=== PATIENT | female | born 1955 | race Caucasian/White ===

== ENCOUNTER 2019-01-02 13:09 | Inpatient (IN) | payer OTHER ==
[2019-01-02] MEDS ORDERED: ACETAMINOPHEN TAB 325 MG TAB PO STA (13:29)
[2019-01-02] MEDS ORDERED: MORPHINE SULFATE 4 MG/ML SYRINGE IV STA (13:30)
[2019-01-02] MEDS ORDERED: IPRATROPIUM-ALBUTEROL 3 ML NEB INHALATION STA (13:30)
[2019-01-02] MEDS ORDERED: SODIUM CHLORIDE 0.9% 500 ML 500 ML IV SCH (13:30)
--- NOTE | 2019-01-02 13:35 | ED ---
General Adult HPI - General Chief complaint: Shortness of Breath Stated complaint: gisell, Poss Pneumonia, HxCystic Fibrosis Time Seen by Provider: 01/02/19 13:17 Source: patient, family, RN notes reviewed Mode of arrival: wheelchair Limitations: no limitations - History of Present Illness Initial comments: Patient is a pleasant 63-year-old female presenting to the emergency department with difficulty breathing. Symptoms have progressed over the past couple of years. Symptoms have come much worse today. Patient has felt hot and cold. Patient has been coughing up green mucus. Patient has some discomfort in her chest from coughing. Patient does have a history of cystic fibrosis. Patient has refused lung transplant previously secondary to concern regarding potential complications. - Related Data Home Medications Medication Instructions Recorded Confirmed No Known Home Medications 01/02/19 01/02/19 Allergies Allergy/AdvReac Type Severity Reaction Status Date / Time sulfamethoxazole Allergy Unknown Verified 01/02/19 13:42 [From Bactrim] trimethoprim [From Bactrim] Allergy Unknown Verified 01/02/19 13:42 Review of Systems ROS Statement: Those systems with pertinent positive or pertinent negative responses have been documented in the HPI. ROS Other: All systems not noted in ROS Statement are negative. Constitutional: Reports: as per HPI Eyes: Denies: eye pain ENT: Denies: ear pain Respiratory: Reports: cough, dyspnea Cardiovascular: Reports: chest pain (Which patient attributes to the cough) Endocrine: Reports: fatigue Gastrointestinal: Denies: abdominal pain Genitourinary: Denies: dysuria Musculoskeletal: Denies: back pain Skin: Denies: rash Neurological: Denies: weakness Past Medical History Additional Past Medical History / Comment(s): cystic fibrosis History of Any Multi-Drug Resistant Organisms: None Reported Past Surgical History: No Surgical Hx Reported Past Psychological History: No Psychological Hx Reported Smoking Status: Never smoker Past Alcohol Use History: None Reported Past Drug Use History: None Reported General Exam Limitations: no limitations General appearance: alert Head exam: Present: normocephalic Eye exam: Present: normal appearance, PERRL ENT exam: Present: normal oropharynx Neck exam: Present: normal inspection Respiratory exam: Present: respiratory distress, wheezes, decreased breath s ounds. Absent: chest wall tenderness Cardiovascular Exam: Present: tachycardia GI/Abdominal exam: Present: soft. Absent: tenderness Extremities exam: Present: normal inspection. Absent: pedal edema, calf tenderness Neurological exam: Present: alert Psychiatric exam: Present: normal affect, normal mood Skin exam: Present: normal color Course Vital Signs 01/02/19 01/02/19 01/02/19 13:13 14:11 14:21 Temperature 100.2 F H Pulse Rate 111 H 99 112 H Respiratory 18 Rate Blood Pressure 109/55 O2 Sat by Pulse 91 L Oximetry - Reevaluation(s) Reevaluation #1: 01/02/19 15:04 Patient does meet sepsis criteria diagnosed at 1504. Blood culture and lactic acid have been ordered. IV antibiotics will be ordered. EKG Findings - EKG Comments: EKG Findings:: Sinus tachycardia 103. MA 1:30. QRS 76. QT 314. QTC 411. Normal axis. LVH criteria. No acute ST change. Medical Decision Making - Medical Decision Making Patient reevaluated with only mild improvement. Family updated on results and plan. Case was discussed in detail with Dr. Stanford, who will admit covering for hospital call. - Lab Data Result diagrams: 01/02/19 13:50 Lab Results 01/02/19 01/02/19 01/02/19 Range/Units 13:50 13:50 13:50 WBC 22.5 H (3.8-10.6) k/uL RBC 4.26 (3.80-5.40) m/uL Hgb 11.4 (11.4-16.0) gm/dL Hct 36.3 (34.0-46.0) % MCV 85.1 (80.0-100.0) fL MCH 26.7 (25.0-35.0) pg MCHC 31.4 (31.0-37.0) g/dL RDW 14.3 (11.5-15.5) % Plt Count 205 (150-450) k/uL Neutrophils % 91 % Lymphocytes % 4 % Monocytes % 4 % Eosinophils % 1 % Basophils % 0 % Neutrophils # 20.5 H (1.3-7.7) k/uL Lymphocytes # 0.9 L (1.0-4.8) k/uL Monocytes # 0.8 (0-1.0) k/uL Eosinophils # 0.1 (0-0.7) k/uL Basophils # 0.0 (0-0.2) k/uL Plasma Lactic Acid Murtaza 2.2 H* (0.7-2.0) mmol/L Troponin I <0.012 (0.000-0.034) ng/mL - Radiology Data Radiology results: image reviewed (Chest x-ray has appearance of diffuse pulmonary nodularity and infiltrates.) Critical Care Time Critical Care Time: Yes Total Critical Care Time: 31 Disposition Clinical Impression: Pneumonia Disposition: ADMITTED IP TO THIS HOSP Is patient prescribed a controlled substance at d/c from ED?: No Referrals: None,Stated [Primary Care Provider] - 1-2 days Decision Time: 15:04
[2019-01-02 14:17] LABS: Basophils % (A) 0 %; Eosinophils # (A) 0.1 k/uL (0-0.7); Eosinophils % (A) 1 %; HCT 36.3 % (34.0-46.0); HGB 11.4 gm/dL (11.4-16.0); Lymphocytes # (A) 0.9 k/uL (1.0-4.8); Lymphocytes % (A) 4 %; MCH 26.7 pg (25.0-35.0); MCHC 31.4 g/dL (31.0-37.0); MCV 85.1 fL (80.0-100.0); Mean Platelet Volume 8.5; Monocytes # (A) 0.8 k/uL (0-1.0); Monocytes % (A) 4 %; Neutrophils # (A) 20.5 k/uL (1.3-7.7); Neutrophils % (A) 91 %; Platelet Count 205 k/uL (150-450); RBC 4.26 m/uL (3.80-5.40); RDW 14.3 % (11.5-15.5); WBC 22.5 k/uL (3.8-10.6)
--- NOTE | 2019-01-02 14:38 | XR ---
EXAMINATION TYPE: XR chest 2V DATE OF EXAM: 01/02/2019 COMPARISON: NONE HISTORY: Shortness of breath TECHNIQUE: Frontal and lateral views of the chest are obtained. FINDINGS: Scattered senescent parenchymal changes noted. Hyperinflation compatible with COPD. Diffuse pulmonary nodularity and infiltrates. Correlate for atypical pneumonia. Metastatic disease is not excluded. Heart size is within normal limits. Mediastinal structures are stable and grossly unremarkable. No evidence for hilar prominence. Degenerative changes dorsal spine. IMPRESSION: 1. Diffuse pulmonary nodularity and infiltrates. Correlate for atypical pneumonia. Metastatic disease is not excluded.
[2019-01-02 15:00] LABS: ALT 21 U/L (9-52); AST 37 U/L (14-36); Albumin 3.9 g/dL (3.5-5.0); Alkaline Phosphatase 83 U/L (38-126); Anion Gap 9 mmol/L; Blood Urea Nitrogen 13 mg/dL (7-17); Calcium 8.9 mg/dL (8.4-10.2); Carbon Dioxide 28 mmol/L (22-30); Chloride 98 mmol/L (98-107); Creatine Kinase 26 U/L (30-135); Glucose 92 mg/dL (74-99); Sodium 135 mmol/L (137-145); Total Bilirubin 0.9 mg/dL (0.2-1.3); Total Protein 7.5 g/dL (6.3-8.2)
[2019-01-02] MEDS ORDERED: PNEUMONIA PROTOCOL UTILIZED 1 EACH MISC PO PRN (15:05)
[2019-01-02] MEDS ORDERED: PIPERACILLIN-TAZOBACTAM 3.375 GM in SODIUM CHLORIDE 0.9% 100 ML IVPB STA (15:05)
[2019-01-02] MEDS ORDERED: LEVOFLOXACIN 750MG-D5W PMX 750 MG in DEXTROSE/WATER 1 150ML.BAG IVPB STA (15:05)
[2019-01-02 15:10] LABS: Potassium 3.8 mmol/L (3.5-5.1)
[2019-01-02 15:20] LABS: INR 0.9 (<1.2); Partial Thromboplastin Time 22.2 sec (22.0-30.0); Prothrombin Time 9.5 sec (9.0-12.0)
[2019-01-02] MEDS ORDERED: methylPREDNISolone SOD SUCCI 125 MG/2 ML VIAL IV STA (15:22)
[2019-01-02 15:41] VITALS: BMI 16.1
[2019-01-02] MEDS: SODIUM CHLORIDE 0.9% 1,000 ML IV SCH (15:42)
[2019-01-02] MEDS: IPRATROPIUM-ALBUTEROL 3 ML NEB INHALATION SCH ×2 (15:46→19:52)
[2019-01-02] MEDS ORDERED: ALPRAZolam 0.25 MG TAB PO PRN (16:34)
[2019-01-02] MEDS ORDERED: TEMAZEPAM 15 MG CAP PO PRN (16:37)
[2019-01-02 17:09] LABS: Glucose,Whole Blood 109 mg/dL (75-99)
[2019-01-02] MEDS: INSULIN ASPART (NovoLOG) 100 UNIT/ML VIAL SQ SCH ×2 (17:13→20:48)
[2019-01-02 17:51] LABS: Appearance,Urine Clear (Clear); Bilirubin,Urine Negative (Negative); Blood,Urine Negative (Negative); Color,Urine Colorless; Glucose,Urine (UA) Negative (Negative); Ketones,Urine Negative (Negative); Leukocyte Esterase,Urine Negative (Negative); Nitrite,Urine Negative (Negative); PH, Urine 7.5 (5.0-8.0); Protein,Urine Negative (Negative); Specific Gravity,Urine 1.003 (1.001-1.035); Urobilinogen,Urine <2.0 mg/dL (<2.0)
[2019-01-02] MEDS: methylPREDNISolone SOD SUCCI 125 MG/2 ML VIAL IV SCH ×2 (18:08→23:52)
--- NOTE | 2019-01-02 18:55 | HP ---
HISTORY AND PHYSICAL CHIEF COMPLAINTS: Shortness of breath and cough and sputum. HISTORY OF PRESENT ILLNESS: This 63-year-old woman with a past medical history of asthma, pneumonia, history of cystic fibrosis, bronchitis, history of chronic respiratory failure, not being followed by a primary physician in the outpatient setting, was previously followed by [facility]. The patient apparently refused lung transplantation for cystic fibrosis. Now the patient is complaining of shortness of breath, cough and sputum. Patient was admitted to [facility]. The patient was apparently discharged from there and, because of lack of improvement and worsened symptoms, the patient came to [facility] and was admitted for evaluation and treatment. Chest x-ray showed bilateral pneumonia. Patient is admitted for evaluation. There is no history of any fever, rigor or chills. No history of headache, loss of consciousness, seizures. PAST MEDICAL HISTORY: 1. Cystic fibrosis. 2. History of asthma. 3. Pneumonia. 4. History of chronic hypoxic respiratory failure. MEDICATIONS PRIOR TO ADMISSION: None. ALLERGIES: BACTRIM, SULFA. FAMILY HISTORY: No history of heart disease or strokes in the family. SOCIAL HISTORY: No history of smoking. No history of alcohol intake. REVIEW OF SYSTEMS: ENT: No diminished hearing. No diminished vision. CARDIOVASCULAR SYSTEM: No angina, palpitations. RESPIRATORY SYSTEM: As mentioned earlier. GI: No nausea, vomiting. : No dysuria or retention. NERVOUS SYSTEM: No numbness, weakness. ALLERGY/IMMUNOLOGY: No asthma, hayfever. MUSCULOSKELETAL: As mentioned earlier. HEMATOLOGY/ONCOLOGY: No history of anemia. ENDOCRINE: No history of diabetes, hypothyroidism. CONSTITUTIONAL: As mentioned earlier. DERMATOLOGY: Negative. RHEUMATOLOGY: Negative. PSYCHIATRY: As mentioned earlier. PHYSICAL EXAMINATION: Patient is alert, oriented x3. Pulse is 98, blood pressure 136/80, respiration 20, temperature 99.4, pulse ox 92% on 3 L. HEENT: Conjunctivae normal. Oral mucosa moist. NECK: No jugular venous distention. No carotid bruit. No lymph node enlargement. CARDIOVASCULAR SYSTEM: S1, S2 muffled. No S3. No S4. RESPIRATORY SYSTEM: Breath sounds diminished at the bases. Bilateral scattered rhonchi and crackles. Coarse crackles also present. ABDOMEN: Soft, non-tender. No mass palpable. LEGS: No edema. No swelling. NERVOUS SYSTEM: Higher functions as mentioned earlier. Moves all 4 limbs. No focal motor or sensory deficit. LYMPHATICS: No lymph node palpable in neck, axillae or groin. SKIN: No ulcer, rash, bleeding. JOINTS: No active deforming arthropathy. LABS: WBC 22.5, hemoglobin 11.4, sodium 135, lactic acid 2.2. ASSESSMENT: 1. Bilateral pneumonia, possibly gram-negative, with sepsis. 2. Cystic fibrosis. 3. Bronchial asthma, acute exacerbation, with chronic persistent asthma. 4. Hyponatremia. 5. Increased white count. 6. Increased lactic acid. 7. History of pneumonia. 8. History of chronic hypoxic respiratory failure, on home oxygen. 9. History of severe abdominal pain after eating. 10.Severe protein-calorie malnutrition. BMI of 16.1. RECOMMENDATIONS AND DISCUSSION: In this 63-year-old woman who presented with multiple complex medical issues, we will monitor the patient closely, continue the current management, continue symptomatic treatment. Will initiate broad-spectrum IV antibiotics. Obtain sputum culture. Bronchodilators. I would also recommend IV steroids. Monitor blood sugars closely. Symptomatic treatment will be provided. Dr. Nova will be consulted. Otherwise, DVT prophylaxis. Overall prognosis guarded because of multiple complex medical issues. Further recommendations to follow. I would check for influenza as well. See orders for additional details. I also recommend that the patient follow up with a primary physician closely after discharge. Prognosis guarded. Discussed with the family. MMODL / IJN: [id number] /
[2019-01-02] MEDS: BUDESONIDE 1 MG/2 ML NEBU INHALATION SCH (19:52)
[2019-01-02] MEDS: FORMOTEROL FUMARATE 20 MCG/2 ML NEBU INHALATION SCH (19:52)
[2019-01-02 20:46] LABS: Glucose,Whole Blood 160 mg/dL (75-99)
[2019-01-02] MEDS: HEPARIN SODIUM,PORCINE 5,000 UNIT/ML 1 ML VIAL SQ SCH (20:48)
[2019-01-02] MEDS: TEMAZEPAM 15 MG CAP PO PRN (21:44)
[2019-01-02] MEDS: PIPERACILLIN-TAZOBACTAM 3.375 GM in SODIUM CHLORIDE 0.9% 100 ML IVPB SCH (23:52)
[2019-01-03] MEDS: IPRATROPIUM-ALBUTEROL 3 ML NEB INHALATION PRN (02:22)
[2019-01-03] MEDS: methylPREDNISolone SOD SUCCI 125 MG/2 ML VIAL IV SCH ×4 (05:14→23:03)
[2019-01-03 06:59] LABS: Glucose,Whole Blood 145 mg/dL (75-99)
[2019-01-03] MEDS: PIPERACILLIN-TAZOBACTAM 3.375 GM in SODIUM CHLORIDE 0.9% 100 ML IVPB SCH ×3 (07:05→23:03)
[2019-01-03] MEDS: INSULIN ASPART (NovoLOG) 100 UNIT/ML VIAL SQ SCH ×4 (07:07→20:46)
[2019-01-03] MEDS: PANTOPRAZOLE 40 MG TABLET PO SCH (07:07)
[2019-01-03] MEDS: HEPARIN SODIUM,PORCINE 5,000 UNIT/ML 1 ML VIAL SQ SCH ×2 (07:08→19:36)
--- NOTE | 2019-01-03 08:28 | XR ---
EXAMINATION TYPE: XR chest 2V DATE OF EXAM: 01/03/2019 COMPARISON: 01/02/2019 HISTORY: 63 year-old female follow-up pneumonia TECHNIQUE: Frontal and lateral views FINDINGS: Heart normal size. Aorta within normal limits. Hyperinflation with suspected underlying emphysema. Ho wever, superimposed coarse reticular and nodular densities are present throughout. Opacity is somewha t more confluent peripheral right base. Aeration may be minimally improved peripheral left mid lung. IMPRESSION: Suspect underlying COPD. Superimposed diffuse interstitial changes with coarse reticular and nodular opacities. Overall changes are relatively stable. Correlate for possible multifocal pneumonia includi ng atypical fungal or mycobacterial infections.
[2019-01-03] MEDS: BUDESONIDE 1 MG/2 ML NEBU INHALATION SCH ×2 (08:48→20:06)
[2019-01-03] MEDS: IPRATROPIUM-ALBUTEROL 3 ML NEB INHALATION SCH ×4 (08:49→20:06)
[2019-01-03] MEDS: FORMOTEROL FUMARATE 20 MCG/2 ML NEBU INHALATION SCH ×2 (08:49→20:24)
[2019-01-03 09:36] LABS: Basophils % (A) 0 %; Eosinophils % (A) 0 %; HCT 43.2 % (34.0-46.0); HGB 13.2 gm/dL (11.4-16.0); Hypochromasia Moderate; Lymphocytes # (A) 0.4 k/uL (1.0-4.8); Lymphocytes % (A) 3 %; MCH 27.1 pg (25.0-35.0); MCHC 30.7 g/dL (31.0-37.0); MCV 88.2 fL (80.0-100.0); Monocytes # (A) 0.2 k/uL (0-1.0); Monocytes % (A) 1 %; Neutrophils # (A) 15.7 k/uL (1.3-7.7); Neutrophils % (A) 96 %; Platelet Count 401 k/uL (150-450); RBC 4.89 m/uL (3.80-5.40); RDW 14.5 % (11.5-15.5); WBC 16.4 k/uL (3.8-10.6)
[2019-01-03 10:07] LABS: Anion Gap 11 mmol/L; Blood Urea Nitrogen 17 mg/dL (7-17); Calcium 8.9 mg/dL (8.4-10.2); Carbon Dioxide 24 mmol/L (22-30); Chloride 104 mmol/L (98-107); Glucose 186 mg/dL (74-99); Sodium 139 mmol/L (137-145)
[2019-01-03 10:26] LABS: Potassium 4.3 mmol/L (3.5-5.1)
[2019-01-03 12:01] LABS: Glucose,Whole Blood 128 mg/dL (75-99)
--- NOTE | 2019-01-03 13:08 | P.CNPUL ---
History of Present Illness Consult date: 01/03/19 Requesting physician: Beny Stanford Reason for consult: pneumonia, abnormal CXR/CT History of present illness: This is a 63-year-old white female patient with no primary care physician, and recent hospitalization at the [facility] for pneumonia and discharged from there a couple of days ago who presented to the hospital on 2018 with complaints of worsening dyspnea, nausea and vomiting, chest laine estion, and feeling hot and cold. Patient gives a history of cystic fibrosis, previous stroke of pseudomonal pneumonia, current pulmonary infections. Majority of the history is obtained from the chart, patient is difficult to interview, she seems quite irritable with questioning, and unwilling to answer questions. She has never been seen at this hospital before, she states she was discharged from the [facility] prematurely, she was home for less than 24 hours after discharge, not have a chance to berry picker her outpatient prescriptions and had to go back to the hospital for treatment. She states she used to receive her care at the [facility], she states she was diagn osed with cystic fibrosis about 4 years ago after having recurrent pulmonary infections. Does not follow with them anymore, because all they kept doing was more tests, and she does wants them to manage her symptoms. She states she wants a bronchoscopy with BAL leave her chest congestion, she wants antibiotics, doesn't want extensive testing, or questioning. She has oxygen at home she usually wears 3 L. She was recommended to have lung transplant in the past and she decided against that. He apparently was also seen at the [facility] for her cystic fibrosis. She states she has some abdominal discomfort on a regular basis, does not take any pancreatic enzyme replacements, states she takes some herbal supplements. Chest x-ray was completed and showed diffuse pulmonary nodularity and infiltrates, correlate for atypical pneumonia, follow-up chest x-ray today showed underlying suspicion for COPD, superimposed diffuse interstitial changes with coarse reticular and nodular opacities, possibly related for possible multifocal pneumonia including atypical fungal or mycobacterial infection. Patient was febrile on presentation with a temp of 100.2F, slightly tachycardic, on 2 L of oxygen her pulse ox is 98%. Lung sounds reveal diffuse coarse crackles. Patient was started on a combination of Levaquin, Zosyn, IV Solu-Medrol, breathing treatments were consulted in regards to her shortness of breath and multifocal pneumonia Review of Systems All systems: negative Constitutional: Denies chills, Denies fever Eyes: denies blurred vision, denies pain Ears, nose, mouth and throat: Denies headache, Denies sore throat Cardiovascular: Denies chest pain, Denies shortness of breath Respiratory: Reports congestion, Reports dyspnea, Reports home oxygen, Reports respiratory infections, Denies cough Gastrointestinal: Reports abdominal pain, Reports nausea, Reports vomiting, Denies diarrhea Genitourinary: Denies dysuria, Denies hematuria Musculoskeletal: Denies myalgias Integumentary: Denies pruritus, Denies rash Neurological: Denies numbness, Denies weakness Psychiatric: Denies anxiety, Denies depression Endocrine: Denies fatigue, Denies weight change Past Medical History Past Medical History: Asthma, Pneumonia, Respiratory Disorder Additional Past Medical History / Comment(s): cystic fibrosis, bronchitis, home oxygen, severe abdominal pain after eating past 4 yrs. History of Any Multi-Drug Resistant Organisms: None Reported Past Surgical History: No Surgical Hx Reported Additional Past Anesthesia/Blood Transfusion Reaction / Comment(s): Pt has never had anesthesia. Smoking Status: Never smoker - Past Family History Father Family Medical History: No Reported History Additional Family Medical History / Comment(s): Father is healthy Mother Family Medical History: No Reported History Additional Family Medical History / Comment(s): Mother is healthy Medications and Allergies Home Medications Medication Instructions Recorded Confirmed Type No Known Home Medications 01/02/19 01/02/19 History Allergies Allergy/AdvReac Type Severity Reaction Status Date / Time sulfamethoxazole Allergy Unknown Verified 01/02/19 13:42 [From Bactrim] trimethoprim [From Bactrim] Allergy Unknown Verified 01/02/19 13:42 Physical Exam Vitals: Vital Signs Temp Pulse Pulse Resp BP BP Pulse Ox 01/03/19 12:18 90 01/03/19 12:05 90 01/03/19 09:12 92 01/03/19 09:00 92 01/03/19 08:49 94 01/03/19 05:18 97.9 F 89 16 113/69 92 L 01/03/19 02:30 94 01/03/19 02:22 92 95 01/02/19 22:00 98.3 F 85 18 103/63 93 L 01/02/19 20:21 102 H 01/02/19 20:04 100 01/02/19 19:53 100 01/02/19 16:14 99.4 F 98 20 136/80 92 L 01/02/19 15:56 99.5 F 92 18 108/54 98 01/02/19 15:55 111 H 18 01/02/19 15:46 108 H 20 01/02/19 15:05 98 01/02/19 14:21 112 H 01/02/19 14:11 99 01/02/19 13:13 100.2 F H 111 H 18 109/55 91 L Intake and Output 01/02/19 01/03/19 01/03/19 22:59 06:59 14:59 Intake Total 840 Balance 840 Intake: Oral 840 Other: Voiding Method Toilet # Voids 2 4 GENERAL EXAM: Alert, 63-year-old white female, thin, cachectic, comfortable in no apparent distress. Patient is intermittently taking oxygen off. HEAD: Normocephalic/atraumatic. EYES: Normal reaction of pupils, equal size. Conjunctiva pink, sclera white. NOSE: Clear with pink turbinates. THROAT: No erythema or exudates. NECK: No masses, no JVD, no thyroid enlargement, no adenopathy. CHEST: No chest wall deformity. Symmetrical expansion. LUNGS: Equal air entry with diffuse crackles, and rhonchi CVS: Regular rate and rhythm, normal S1 and S2, no gallops, no murmurs, no rubs ABDOMEN: Soft, nontender. No hepatosplenomegaly, normal bowel sounds, no guarding or rigidity. EXTREMITIES: No clubbing, no edema, no cyanosis, 2+ pulses and upper and lower extremities. MUSCULOSKELETAL: Muscle strength and tone normal. SPINE: No scoliosis or deformity SKIN: No rashes CENTRAL NERVOUS SYSTEM: Alert and oriented -3. No focal deficits, tone is normal in all 4 extremities. PSYCHIATRIC: Alert and oriented -3. Appropriate affect. Intact judgment and insight. Results - Laboratory Findings CBC and BMP: 01/03/19 09:01 01/03/19 09:01 PT/INR, D-dimer PT 9.5 sec (9.0-12.0) 01/02/19 14:51 INR 0.9 (<1.2) 01/02/19 14:51 Abnormal lab findings: Abnormal Labs 01/02/19 01/02/19 01/02/19 13:50 13:50 13:50 WBC 22.5 H MCHC Neutrophils # 20.5 H Lymphocytes # 0.9 L Sodium 135 L Creatinine 0.37 L Glucose POC Glucose (mg/dL) Plasma Lactic Acid Murtaza 2.2 H* AST 37 H Creatine Kinase 26 L 01/02/19 01/02/19 01/02/19 17:05 18:39 20:44 WBC MCHC Neutrophils # Lymphocytes # Sodium Creatinine Glucose POC Glucose (mg/dL) 109 H 160 H Plasma Lactic Acid Murtaza 2.3 H* AST Creatine Kinase 01/03/19 01/03/19 01/03/19 06:57 09:01 09:01 WBC 16.4 H MCHC 30.7 L Neutrophils # 15.7 H Lymphocytes # 0.4 L Sodium Creatinine 0.45 L Glucose 186 H POC Glucose (mg/dL) 145 H Plasma Lactic Acid Murtaza AST Creatine Kinase 01/03/19 11:59 WBC MCHC Neutrophils # Lymphocytes # Sodium Creatinine Glucose POC Glucose (mg/dL) 128 H Plasma Lactic Acid Murtaza AST Creatine Kinase - Diagnostic Findings Chest x-ray: report reviewed, image reviewed Additional studies: EKG reviewed Assessment and Plan Plan: Assessment: #1. Dyspnea related to pneumonia, chest x-ray showed nodular and coarse reticular opacities, related to multifocal pneumonia, with possibility of atypical, fungal or mycobacterial infection #2. Recent hospitalization at the [facility] for pneumonia, discharged 2 days ago #3. History of cystic fibrosis according to the patient, and patient refused lung transplantation #4. Never smoker #5. History of pseudomonal infections #6. Chronic hypercapnic respiratory failure related to cystic fibrosis and complications related to cf. #7. Lactic acidosis related to pneumonia with sepsis #8. Chronic abdominal pain, it is unclear whether increasing enzyme replacements were recommended for her cf. Plan: Continue current antibiotics, will obtain a Legionella urine antigen, mycoplasma IgM, sputum culture blood culture, will continue breathing treatments, and IV steroids, patient is inquiring about a possibility of bronchoscopy, will evaluate. In the meanwhile we'll try to obtain records from the [facility], [facility] in [place], and at [facility], but the patient is refusing to sign the release of information forms, which seems puzzling. We'll continue with current medical treatment. We will make further recommendations based on her course of illness I performed a history & physical examination of the patient and discussed their management with my nurse practitioner, Shereen Mesa. I reviewed the nurse practitioner's note and agree with the documented findings and plan of care. Lung sounds are positive for diffuse rhonchi and rales. The findings and the impression was discussed with the patient. I attest to the documentation by the nurse practitioner. Time with Patient: Greater than 30
--- NOTE | 2019-01-03 14:20 | P.PN ---
Subjective 63-year-old the female was admitted for pneumonia patient has bilateral nodular infiltrates patient does have history of cystic fibrosis and was treated for Pseudomonas pneumonia in the past patient is presently on Zosyn and patient was requesting bronchoscopy and bronchoalveolar lavage the addition of which will be left to pulmonary. Patient also is clinically stable without oxygen patient is saturating well does have rhonchus breath sounds may not need to stay in the hospital after bronchoscopy if at all she needs it. Although patient is c omplaining that she was discharged prematurely from the current Hospital which I do not believe his stroke. Looking at the patient now patient is clinically stable and can be treated as an outpatient. Although patient complains of subjective symptoms of not feeling well she says she is very sick. Patient is saturating well on room air. She believes steroids is the one that seemed her otherwise she can't even move. Patient is discharged from [facility] and came back to [facility] less than 24 hours. Constitutional: Denied any fatigue denied any fever. Cardio vascular: denied any chest pain, palpitations Gastrointestinal denied any nausea vomiting Pulmonary: As mentioned in HPI Neurologic denied any new focal deficits All inpatient medications were reviewed and appropriate changes in these medications as dictated in the interval history and assessment and plan. Objective - Vital Signs Vital signs: Vital Signs Temp 97.9 F 01/03/19 05:18 Pulse 90 01/03/19 12:18 Resp 16 01/03/19 05:18 BP 113/69 01/03/19 05:18 Pulse Ox 92 L 01/03/19 05:18 Intake & Output 01/02/19 01/03/19 01/03/19 18:59 06:59 18:59 Intake Total 540 300 Balance 540 300 Weight 45.359 kg Intake: Oral 540 300 Other: Voiding Method Toilet # Voids 1 4 - Exam PHYSICAL EXAMINATION: GENERAL: The patient is alert and oriented x3, not in any acute distress. Well developed, well nourished. HEENT: Pupils are round and equally reacting to light. EOMI. No scleral icterus. No conjunctival pallor. Normocephalic, atraumatic. No pharyngeal erythema. No thyromegaly. CARDIOVASCULAR: S1 and S2 present. No murmurs, rubs, or gallops. PULMONARY: Rhonchus breath sounds fairly good air entry into bilateral lung partida ABDOMEN: Soft, nontender, nondistended, normoactive bowel sounds. No palpable organomegaly. MUSCULOSKELETAL: No joint swelling or deformity. EXTREMITIES: No cyanosis, clubbing, or pedal edema. NEUROLOGICAL: Gross neurological examination did not reveal any focal deficits. SKIN: No rashes. - Labs CBC & Chem 7: 01/03/19 09:01 01/03/19 09:01 Labs: Abnormal Lab Results - Last 24 Hours (Table) 01/02/19 01/02/19 01/02/19 Range/Units 13:50 13:50 13:50 WBC 22.5 H (3.8-10.6) k/uL MCHC (31.0-37.0) g/dL Neutrophils # 20.5 H (1.3-7.7) k/uL Lymphocytes # 0.9 L (1.0-4.8) k/uL Sodium 135 L (137-145) mmol/L Creatinine 0.37 L (0.52-1.04) mg/dL Glucose (74-99) mg/dL POC Glucose (mg/dL) (75-99) mg/dL Plasma Lactic Acid Murtaza 2.2 H* (0.7-2.0) mmol/L AST 37 H (14-36) U/L Creatine Kinase 26 L (30-135) U/L 01/02/19 01/02/19 01/02/19 Range/Units 17:05 18:39 20:44 WBC (3.8-10.6) k/uL MCHC (31.0-37.0) g/dL Neutrophils # (1.3-7.7) k/uL Lymphocytes # (1.0-4.8) k/uL Sodium (137-145) mmol/L Creatinine (0.52-1.04) mg/dL Glucose (74-99) mg/dL POC Glucose (mg/dL) 109 H 160 H (75-99) mg/dL Plasma Lactic Acid Murtaza 2.3 H* (0.7-2.0) mmol/L AST (14-36) U/L Creatine Kinase (30-135) U/L 01/03/19 01/03/19 01/03/19 Range/Units 06:57 09:01 09:01 WBC 16.4 H (3.8-10.6) k/uL MCHC 30.7 L (31.0-37.0) g/dL Neutrophils # 15.7 H (1.3-7.7) k/uL Lymphocytes # 0.4 L (1.0-4.8) k/uL Sodium (137-145) mmol/L Creatinine 0.45 L (0.52-1.04) mg/dL Glucose 186 H (74-99) mg/dL POC Glucose (mg/dL) 145 H (75-99) mg/dL Plasma Lactic Acid Murtaza (0.7-2.0) mmol/L AST (14-36) U/L Creatine Kinase (30-135) U/L 01/03/19 Range/Units 11:59 WBC (3.8-10.6) k/uL MCHC (31.0-37.0) g/dL Neutrophils # (1.3-7.7) k/uL Lymphocytes # (1.0-4.8) k/uL Sodium (137-145) mmol/L Creatinine (0.52-1.04) mg/dL Glucose (74-99) mg/dL POC Glucose (mg/dL) 128 H (75-99) mg/dL Plasma Lactic Acid Murtaza (0.7-2.0) mmol/L AST (14-36) U/L Creatine Kinase (30-135) U/L Microbiology - Last 24 Hours (Table) 01/02/19 16:22 Urine Culture - Preliminary Urine,Voided Assessment and Plan Plan: -Bilateral pneumonia appears to be atypical pneumonia, continue with Zosyn considering her previous history of pseudomonal pneumonia and also levofloxacin considering that patient may have atypical pneumonia. -History of cystic fibrosis -Bronchial asthma patient appears to have moderate persistent asthma patient does not appear to be in acute exacerbation at this time continue systemic steroids -Leukocytosis secondary to systemic steroids
[2019-01-03] MEDS: SODIUM CHLORIDE 0.9% 1,000 ML IV SCH (14:51)
[2019-01-03] MEDS ORDERED: LEVOFLOXACIN 750 MG TAB PO SCH (16:00)
[2019-01-03] MEDS ORDERED: LEVOFLOXACIN 750MG-D5W PMX 750 MG in DEXTROSE/WATER 1 150ML.BAG IVPB SCH (16:00)
[2019-01-03 16:48] LABS: Glucose,Whole Blood 113 mg/dL (75-99)
--- NOTE | 2019-01-03 17:03 | P.CNPUL ---
History of Present Illness Consult date: 01/03/19 Reason for consult: dyspnea, cough, abnormal CXR/CT Chief complaint: Shortness of breath History of present illness: This is a 63-year-old female who presented emergency department stating that she was recently discharged from an outside hospital and she went home and stopped breathing. The patient states she was extremely short of breath and stopped breathing multiple times at home. She states she almost . She feels she was discharged from the outside facility to [facility]. The patient's history is somewhat difficult to obtain. The patient becomes very frustrated with questioning about her history. She states she has a history of cystic fibrosis diagnosed 2 years ago at the [facility]. She states 4 years ago she started losing weight and having GI problems. She states that she was diagnosed with Pseudomonas at the [facility]. She states that she went through extensive workup at the [facility] and was undergoing frequent testing but she states they're testing was "the definition of insanity." She states they were just looking for a meal ticket. The patient states that she does not trust Hospital systems and we are all bureaucrats. She states that she has been through multiple hospital systems and does not want any further testing. However then she states that her [id number] had fluid removed from her long and she would like that done. It is explained to the patient that I would need to review the medical records from the [facility] prior to performi ng this procedure. The patient refuses to sign a medical records release and states that she has records at home and will provide only the records that she wants us to see. She states there is no need for us to see all of her records. The patient states that people frequently mean to her and that nobody really cares about her and we are all just looking for a meal ticket. The patient states multiple times that she knows she is directly months to live. She states that she does not want to deal with doctors during her dying process. She states that she just wants to focus on healing and does not want to do any more tests. The patient's available records are reviewed from [facility]. She had a similar experience at [facility] and they recommended further workup for possible interstitial lung disease and the patient declined. She declined any further blood work and other testing. She declined to see pulmonary at that time. During the patient's last hospitalization at [facility] the patient did ask me to stop seeing her because she states that she did not want to see any physicians she just wanted to focus on her healing and go home. However the patient is willing to see me now if we will consider bronchoscopy. Review of Systems All systems: negative Past Medical History Past Medical History: Asthma, Pneumonia, Respiratory Disorder Additional Past Medical History / Comment(s): cystic fibrosis, bronchitis, home oxygen, severe abdominal pain after eating past 4 yrs. History of Any Multi-Drug Resistant Organisms: None Reported Past Surgical History: No Surgical Hx Reported Additional Past Anesthesia/Blood Transfusion Reaction / Comment(s): Pt has never had anesthesia. Smoking Status: Never smoker - Past Family History Father Family Medical History: No Reported History Additional Family Medical History / Comment(s): Father is healthy Mother Family Medical History: No Reported History Additional Family Medical History / Comment(s): Mother is healthy Medications and Allergies Home Medications Medication Instructions Recorded Confirmed Type No Known Home Medications 01/02/19 01/02/19 History Allergies Allergy/AdvReac Type Severity Reaction Status Date / Time sulfamethoxazole Allergy Unknown Verified 01/02/19 13:42 [From Bactrim] trimethoprim [From Bactrim] Allergy Unknown Verified 01/02/19 13:42 Physical Exam Osteopathic Statement: *. No significant issues noted on an osteopathic structural exam other than those noted in the History and Physical/Consult. Vitals: Vital Signs Temp Pulse Pulse Resp BP Pulse Ox 01/03/19 16:35 90 01/03/19 16:24 88 01/03/19 15:00 97.9 F 94 16 112/64 91 L 01/03/19 12:18 90 01/03/19 12:05 90 01/03/19 09:12 92 01/03/19 09:00 92 01/03/19 08:49 94 01/03/19 05:18 97.9 F 89 16 113/69 92 L 01/03/19 02:30 94 01/03/19 02:22 92 95 01/02/19 22:00 98.3 F 85 18 103/63 93 L 01/02/19 20:21 102 H 01/02/19 20:04 100 01/02/19 19:53 100 Intake and Output 01/03/19 01/03/19 01/03/19 06:59 14:59 22:59 Other: # Voids 4 3 # Bowel Movements 0 Weight 45.359 kg Gen.: Patient is alert and oriented 3, no acute distress, thin Cardiovascular: Regular rate and rhythm, S1/S2 Lungs: Coarse breath sounds bilaterally Abdomen: Soft nontender nondistended positive bowel sounds Extremities: No edema Results - Laboratory Findings CBC and BMP: 01/03/19 09:01 01/03/19 09:01 PT/INR, D-dimer PT 9.5 sec (9.0-12.0) 01/02/19 14:51 INR 0.9 (<1.2) 01/02/19 14:51 Abnormal lab findings: Abnormal Labs 01/02/19 01/02/19 01/02/19 13:50 13:50 13:50 WBC 22.5 H MCHC Neutrophils # 20.5 H Lymphocytes # 0.9 L Sodium 135 L Creatinine 0.37 L Glucose POC Glucose (mg/dL) Plasma Lactic Acid Murtaza 2.2 H* AST 37 H Creatine Kinase 26 L 01/02/19 01/02/19 01/02/19 17:05 18:39 20:44 WBC MCHC Neutrophils # Lymphocytes # Sodium Creatinine Glucose POC Glucose (mg/dL) 109 H 160 H Plasma Lactic Acid Murtaza 2.3 H* AST Creatine Kinase 01/03/19 01/03/19 01/03/19 06:57 09:01 09:01 WBC 16.4 H MCHC 30.7 L Neutrophils # 15.7 H Lymphocytes # 0.4 L Sodium Creatinine 0.45 L Glucose 186 H POC Glucose (mg/dL) 145 H Plasma Lactic Acid Murtaza AST Creatine Kinase 01/03/19 01/03/19 11:59 16:46 WBC MCHC Neutrophils # Lymphocytes # Sodium Creatinine Glucose POC Glucose (mg/dL) 128 H 113 H Plasma Lactic Acid Murtaza AST Creatine Kinase - Diagnostic Findings Chest x-ray: report reviewed, image reviewed Assessment and Plan Assessment: Multifocal pneumonia concerning for atypical infection Questionable history of cystic fibrosis versus other interstitial lung disease 2/4 SIRS, sepsis, related to above Moderate persistent asthma Bronchiectasis History of Pseudomonas Underweight Leukocytosis likely secondary to steroids Patient is refusing to sign release of records from Legionella, mycoplasma, sputum culture pending Steroid taper Bronchodilators Pulmicort Levaquin and Zosyn The patient's blood cultures done at [facility] were negative, she apparently refused sputum culture Further recommendations pending review of records from Thank you for this consultation. We will continue to follow along.
[2019-01-03 20:18] LABS: Glucose,Whole Blood 199 mg/dL (75-99)
[2019-01-03] MEDS: TEMAZEPAM 15 MG CAP PO PRN (22:24)
[2019-01-04] MEDS: IPRATROPIUM-ALBUTEROL 3 ML NEB INHALATION PRN (05:04)
[2019-01-04] MEDS: methylPREDNISolone SOD SUCCI 125 MG/2 ML VIAL IV SCH ×2 (06:17→12:58)
[2019-01-04] MEDS ORDERED: IPRATROPIUM-ALBUTEROL 3 ML NEB INHALATION PRN (07:16)
[2019-01-04] MEDS: PANTOPRAZOLE 40 MG TABLET PO SCH (07:20)
[2019-01-04] MEDS: HEPARIN SODIUM,PORCINE 5,000 UNIT/ML 1 ML VIAL SQ SCH (07:20)
[2019-01-04 07:29] LABS: Glucose,Whole Blood 122 mg/dL (75-99)
[2019-01-04] MEDS: INSULIN ASPART (NovoLOG) 100 UNIT/ML VIAL SQ SCH ×2 (07:48→12:58)
[2019-01-04] MEDS: PIPERACILLIN-TAZOBACTAM 3.375 GM in SODIUM CHLORIDE 0.9% 100 ML IVPB SCH (07:51)
[2019-01-04] MEDS: BUDESONIDE 1 MG/2 ML NEBU INHALATION SCH (09:22)
[2019-01-04] MEDS: FORMOTEROL FUMARATE 20 MCG/2 ML NEBU INHALATION SCH (09:22)
[2019-01-04] MEDS: IPRATROPIUM-ALBUTEROL 3 ML NEB INHALATION SCH ×2 (09:22→13:16)
[2019-01-04 11:25] LABS: Glucose,Whole Blood 171 mg/dL (75-99)
--- NOTE | 2019-01-04 14:11 | P.DS ---
Providers Date of admission: 01/02/19 15:05 Attending physician: Beny Stanford Consults: 01/03/19 13:58 Consult Physician Routine Consulting Provider: Marisabel Delgado Consult Reason/Comments: Dyspnea Do you want consulting provider notified?: Yes Primary care physician: Stated None Hospital Course: 63-year-old the female was admitted for pneumonia patient has bilateral nodular infiltrates patient does have history of cystic fibrosis and was treated for Pseudomonas pneumonia in the past patient is presently on Zosyn and patient was requesting bronchoscopy and bronchoalveolar lavage the addition of which will be left to pulmonary. Patient also is clinically stable without oxygen patient is saturating well does have rhonchus breath sounds may not need to stay in the hospital after bronchoscopy if at all she needs it. Although patient is complaining that she was discharged prematurely from the current Hospital which I do not believe his stroke. Looking at the patient now patient is clinically stable and can be treated as an outpatient. Although patient complains of subjective symptoms of not feeling well she says she is very sick. Patient is saturating well on room air. She believes steroids is the one that seemed her otherwise she can't even move. Patient is discharged from [facility] and came back to [facility] less than 24 hours. 01/04/2019 Patient is clinically doing well and can be discharged in spite of her complaints of not feeling well there is no objective evidence of respiratory distress and does have minimalrhonchus breath sounds on exam. Same thing was informed to the patient patient can be discharged and then patient became belligerent started shouting with racially motivated slurs.patient probably does need to be admitted the first place patient will be discharged on weaning dose of steroids and levofloxacin follow-up with her PCP as an outpatient PHYSICAL EXAMINATION: GENERAL: The patient is alert and oriented x3, not in any acute distress. Well developed, well nourished. HEENT: Pupils are round and equally reacting to light. EOMI. No scleral icterus. No conjunctival pallor. Normocephalic, atraumatic. No pharyngeal erythema. No thyromegaly. CARDIOVASCULAR: S1 and S2 present. No murmurs, rubs, or gallops. PULMONARY:good air entry except for rhonchus breath sounds on exam ABDOMEN: Soft, nontender, nondistended, normoactive bowel sounds. No palpable organomegaly. MUSCULOSKELETAL: No joint swelling or deformity. EXTREMITIES: No cyanosis, clubbing, or pedal edema. NEUROLOGICAL: Gross neurological examination did not reveal any focal deficits. SKIN: No rashes. Assessment and Plan Plan: -Bilateral pneumonia appears to be atypical pneumonia, patient will be discharged on levofloxacin and there is no evidence of for Pseudomonas pneumonitis pneumonia on this admission are from the hospitalization at [facility] -History of cystic fibrosis: Unsure about his diagnosis. Patient doesn't want us to get all the medical records from [facility]. -Leukocytosis secondary to systemic steroids -possible psychosomatic disorder or malingering, patient may benefit from psychiatric evaluation as an outpatient. Plan - Discharge Summary Discharge Rx Participant: No New Discharge Prescriptions: New Levofloxacin [Levaquin] 750 mg PO Q24H #5 tab predniSONE 10 mg PO DAILY #30 tab Albuterol Inhaler [Ventolin Hfa Inhaler] 1 - 2 puff INHALATION Q6HR PRN #1 inhaler PRN Reason: Shortness Of Breath Or Wheezing Discharge Medication List Albuterol Inhaler [Ventolin Hfa Inhaler] 1 - 2 puff INHALATION Q6HR PRN #1 inhaler 01/04/19 [Rx] Levofloxacin [Levaquin] 750 mg PO Q24H #5 tab 01/04/19 [Rx] predniSONE 10 mg PO DAILY #30 tab 01/04/19 [Rx] Follow up Appointment(s)/Referral(s): None,Stated [Primary Care Provider] - 1-2 days Patient Instructions/Handouts: Pneumonia (GEN) Discharge Disposition: HOME SELF-CARE
[2019-01-04 14:20] VITALS: BP 148/81; PULSE 73; RESP 16; TEMP 98.2
[2019-01-04] MEDS: SODIUM CHLORIDE 0.9% 1,000 ML IV SCH (16:07)
--- NOTE | 2019-01-07 12:24 | CDI ---
Documentation Clarification Form Date: 01/06/19 From: Valeria Singer Phone: If questions call Latonya Marcano @ [phone], Hours-8:30 am & 5 pm M- F Admit Date: 01/02/2019 3:05:00 PM Patient Name: Tanika Mondragon Visit Number: [id number] Discharge Date: 01/04/2019 3:30:00 PM ATTENTION: The Clinical Documentation Specialists (CDI) and [facility] Coding Staff appreciate your assistance in clarifying documentation. Please respond to the clarification below the line at the bottom and electronically sign. The CDI & [facility] Coding staff will review the response and follow-up if needed. Please note: Queries are made part of the Legal Health Record. If you have any questions, please contact the author of this message via ITS. Dr. Alyson Perez Conflicting documentation has been found in the medical record: ED Note, H&P and both consults document sepsis. Lactic acid-2.2/2.3, lactic acid sepsis rflx-yes, T-100.2, P-111 Your PN & DS does not include sepsis. Patient has cystic fibrosis with atypical pneumonia. Treatment: IV Solu Medrol, IV Levaquin, IV Zosyn In your opinion, what is the most clinically appropriate diagnosis for this patient? Sepsis ruled in Sepsis ruled out Other explanation of clinical findings Unable to determine (no explanation for clinical findings) appropriate documentation was dictated it in my note MTDD
== END 2019-01-04 15:30 | disposition home or self-care (01) | DRG 193 ==
LOC: EC 13:09 → 4MS4W 15:05 → 4SSUR 01-04 15:10 → 4MS4W 01-04 15:18
PROVIDERS: ADMIT Hospitalist; ATTEND Hospitalist
DX: J18.9 Pneumonia, unspecified organism (principal); E43 Unspecified severe protein-calorie malnutrition; E84.9 Cystic fibrosis, unspecified; J96.11 Chronic respiratory failure with hypoxia; E87.2 Acidosis; R64 Cachexia; J45.41 Moderate persistent asthma with (acute) exacerbation; E87.1 Hypo-osmolality and hyponatremia; Z68.1 Body mass index [BMI] 19.9 or less, adult; J96.12 Chronic respiratory failure with hypercapnia; J47.0 Bronchiectasis with acute lower respiratory infection; D72.829 Elevated white blood cell count, unspecified; G89.29 Other chronic pain; R10.9 Unspecified abdominal pain; F29 Unspecified psychosis not due to a substance or known physiological condition; T38.0X5A Adverse effect of glucocorticoids and synthetic analogues, initial encounter; Z99.81 Dependence on supplemental oxygen; Z76.5 Malingerer [conscious simulation]; Z87.01 Personal history of pneumonia (recurrent); Z86.73 Personal history of transient ischemic attack (TIA), and cerebral infarction without residual deficits; Z88.2 Allergy status to sulfonamides
CPT/HCPCS: 36415; 71046; 80048; 80053; 81003; 82550; 83605; 84484; 85025; 85610; 85730; 86738; 87040; 87086; 87449; 87502; 93005; 94640; 94760; 96365; 96374; 96375; 99291